=== PATIENT | male | born 1965 | race Caucasian/White ===

== ENCOUNTER 2024-11-26 17:50 | Emergency (ER) | payer OTHER ==
[~2024-11-26] VITALS: Ht 182.9 cm; Wt 81.2 kg
[2024-11-26 17:53] VITALS: O2SAT 100
[2024-11-26] MEDS: LIDOCAINE HCL/EPINEPHRINE 1%-EPI 1:100,000 20ML VIAL INFIL ONE (18:54)
[2024-11-26] MEDS: ACETAMINOPHEN WITH CODEINE 300/30MG TABLET PO ONE (18:54)
[2024-11-26] MEDS ORDERED: TOPUD PO (19:36)
[2024-11-26] MEDS: TETANUS, DIPHTHERIA, PERTUSSIS VAC/PF 0.5ML (>10YR OLD) IM ONE (19:52)
[2024-11-26 20:36] VITALS: BP 131/64; PULSE 70; RESP 18; TEMP 37.1; O2SAT 100
== END 2024-11-26 20:35 | disposition home or self-care (01) ==
LOC: ER 17:50
DX: S66.902A Unspecified injury of unspecified muscle, fascia and tendon at wrist and hand level, left hand, initial encounter (principal); J45.909 Unspecified asthma, uncomplicated; W45.8XXA Other foreign body or object entering through skin, initial encounter; Y93.89 Activity, other specified; Y92.89 Other specified places as the place of occurrence of the external cause; Y99.8 Other external cause status
CPT/HCPCS: 99283; 73120; 90715; 29125; 90471; J2004